=== PATIENT | female | born 1975 | race Hispanic/Latino ===

== ENCOUNTER → 2025-05-04 | Day surgery (SDC) | payer OTHER ==
[~2025-05-04] MED LIST: ACAI BERRY500 MG PO; CITRACAL + D E1 EACH PO; GLUCAGON FOR INJ 1 MG VIAL ONE; LIDOCAINE HCL 2% LOCAL INJ 5 ML SDV VIAL INJ ONE; MIDAZOLAM HCL 2 MG/2 ML VIAL ONE; PROPOFOL IV EMULSION 10 MG/ML 20 ML VIAL ONE; VIT C PO; VIT E PO
[2025-05-04] MEDS: LACTATED RINGER'S 1,000 ML ONE (11:48)
[2025-05-04 13:12] VITALS: TEMP 97.6
[2025-05-04 13:25] VITALS: BP 98/63; PULSE 72; RESP 16; O2SAT 99
== END | disposition home or self-care (01) ==
LOC: OR 11:01
PROVIDERS: ATTEND Internal Medicine Gastroenterology
DX: Z12.11 Encounter for screening for malignant neoplasm of colon (principal); K63.89 Other specified diseases of intestine; E78.5 Hyperlipidemia, unspecified
CPT/HCPCS: 45380; 81025; 93005; J1610; J2003; J2250; J2704; J7121; 45378